=== PATIENT | female | born 1965 | race Caucasian/White ===

== ENCOUNTER → 2020-05-16 09:34 | Outpatient (CLI) | payer BC, SELFPAY ==
--- NOTE | 2020-05-16 09:36 | DI.RAD.S_ITS ---
PROCEDURE: XR FOOT LT MIN 3V INDICATIONS: direct blow from heavy object, 5th toe, r/o fx TECHNIQUE: 3 views of the foot were acquired. COMPARISON: None. FINDINGS: Bones: Very subtle linear lucency involving the distal phalanx of the left 5th toe without definite cortical disruption. No malalignment. Remainder of the visualized osseous structures appear intact. No suspicious bony lesions. Soft tissues: No tibiotalar joint effusion. Achilles tendon appears normal. IMPRESSION: Very subtle linear lucency involving the distal phalanx of the left 5th toe which may represent a nondisplaced fracture given history of trauma versus prominent nutrient foramen. Consider immobilization and repeat imaging in 10-14 days. Dictated by: Piotr Kendall M.D. on 05/16/2020 at 9:52 Approved by: Piotr Kendall M.D. on 05/16/2020 at 9:55
== END ==
PROVIDERS: Referring Provider Physician Assistant; Visit Provider Physician Assistant
DX: S90.129A Contusion of unspecified lesser toe(s) without damage to nail, initial encounter (principal); W22.8XXA Striking against or struck by other objects, initial encounter
CPT/HCPCS: 73630

== ENCOUNTER → 2022-01-10 18:17 | Outpatient (CLI) | payer BC, SELFPAY | PROVIDERS: Visit Provider Nurse Practitioner Family | DX: N34.3 Urethral syndrome, unspecified (principal) | CPT/HCPCS: 87086 ==